=== PATIENT | female | born 1995 | race Two or more races ===

== ENCOUNTER 2021-10-17 15:49 | Emergency (ER) | payer OTHER ==
[~2021-10-17] VITALS: Ht 157.5 cm; Wt 49.9 kg
[2021-10-17 16:18] VITALS: BP 126/66
--- NOTE | 2021-10-17 16:25 | NUR ---
BIBS C/O "Started having flu-like symptoms cough/fever/bodyachache sore throat yesterday". AMBULATORY, [id number].
[2021-10-17] MEDS ORDERED: AMOX-430 PO (16:33)
[2021-10-17] MEDS ORDERED: IBUP-1955 PO (16:33)
--- NOTE | 2021-10-17 16:40 | NUR ---
RAPID STREP SWAB DONE AND SENT TO LAB
--- NOTE | 2021-10-17 16:50 | NUR ---
Patient discharged to home in stable condition. Written and verbal after care instructions given. Patient verbalizes understanding of instruction.
== END 2021-10-17 16:51 | disposition home or self-care (01) ==
LOC: ER 15:55
DX: J02.0 Streptococcal pharyngitis (principal)
CPT/HCPCS: 86403-TC; 87070-TC

== ENCOUNTER 2021-11-12 14:30 | Emergency (ER) | payer OTHER ==
[~2021-11-12] VITALS: Ht 162.6 cm; Wt 54.4 kg
[~2021-11-12 14:30] MED LIST: AMOX-430 PO; IBUP-1955 PO
--- NOTE | 2021-11-12 14:40 | NUR ---
BIBS W/ C/O SORE THROAT. PT SEEN BY FOR EVAL.
[2021-11-12] MEDS ORDERED: CLIN300C12 PO ×2 (14:51→15:05)
[2021-11-12] MEDS ORDERED: DEXAMETHASONE 4 MG TABLET ONE (14:54)
[2021-11-12] MEDS: DEXAMETHASONE SOLN 5 MG/5 ML UDC PO ONE (14:56)
[2021-11-12 15:08] VITALS: BP 126/73
--- NOTE | 2021-11-12 15:09 | NUR ---
Patient discharged to home in stable condition. Written and verbal after care instructions given. Patient verbalizes understanding of instruction.
== END 2021-11-12 15:10 | disposition home or self-care (01) ==
LOC: ER 14:38
DX: J02.0 Streptococcal pharyngitis (principal); Z79.899 Other long term (current) drug therapy
CPT/HCPCS: 99283; J8540